=== PATIENT | male | born 1950 | race African-American/Black ===

== ENCOUNTER 2016-09-18 12:49 | Inpatient (IN) ==
[2016-09-18] MEDS ORDERED: DILTIAZEM 50 MG/10 ML VIAL IV STA ×2 (13:09→14:47)
[2016-09-18] MEDS ORDERED: SODIUM CHLORIDE 0.9% 1,000 ML IV STA ×2 (13:09→14:47)
[2016-09-18] MEDS ORDERED: DILTIAZEM 50 MG/10 ML VIAL IV ONE (13:26)
[2016-09-18 13:27] LABS: Basophils % 0.2 % (0.0-0.8); Hematocrit 41.8 VOL% (42.0-52.0); Hemoglobin 14.9 GM/DL (14.0-18.0); Immature Granulocytes % 0.4 %; Immature Granulocytes Absolute 0.04 #; Lymphocytes % 18.4 % (21.2-54.2); Mean Corpuscular HGB Conc 35.6 GM/DL (32-36); Mean Corpuscular Hemoglobin 33 PG (27-34); Mean Corpuscular Volume 93.7 FL (87-102); Mean Platelet Volume 10.9 FL (9.6-12.0); Monocytes # 0.9 10*3/uL (0.11-0.8); Monocytes % 8.6 % (1.7-12.7); Neutrophils # 7.9 10*3/uL (1.4-7.4); Neutrophils % 72.4 % (38.7-73.9); Platelet Count 142 T/CUMM (130-400); Red Blood Count 4.46 MC/CUMM (3.8-5.5); Red Cell Distribution Width 11.9 % (9.3-17.3); White Blood Count 10.8 T/CUMM (4-12)
[2016-09-18 13:46] LABS: Apearance,Urine Slightly Hazy (Clear); Bacteria,Urine Occasional /HPF (Few); Bilirubin,Urine Negative (Negative); Blood, Urine Large mg/dL (Negative); Glucose,Urine (UA) Negative (Negative); Granular Casts,Urine 5 /LPF (0-1); Hyaline Casts,Urine 13 /LPF (0-3); Ketones,Urine 5 mg/dL (Negative); Mucus,Urine Many /LPF (Occasional); Nitrite,Urine Negative (Negative); Protein,Urine 100 MG/DL; RBC,Urine 1 /HPF (0-4); Squamous Epithelial Cell,Urine Occasional /HPF (0-10); Urine Color Amber (Yellow); Urine Specific Gravity 1.025 (1.001-1.035); WBC,Urine 2 /HPF (0-6)
[2016-09-18 13:52] LABS: Barbiturates Screen,Urine Negative (Negative); Benzodiazepines Screen,Urine Negative (Negative); Cannabinoid Screen,Urine Positive (Negative); Opiate Screen,Urine Negative (Negative); Phencyclidine Screen,Urine Negative (Negative)
[2016-09-18 14:05] LABS: Calcium 8.8 MG/DL (8.5-10.1); Magnesium 1.9 MG/DL (1.8-2.4); Osmolality,Calculated 275.1 MOS/KG (273-304); Potassium 3.6 MMOL/L (3.5-5.1); Thyroid Stimulating Hormone 1.35 uIU/ml (0.358-3.74); Troponin I Only 0.123 NG/ML (0.00-0.045)
[2016-09-18] MEDS ORDERED: ENOXAPARIN 80 MG/0.8 ML SYRINGE SUBCUT STA (15:42)
[2016-09-18] MEDS ORDERED: ASPIRIN CHEW 81 MG TABLET PO STA (15:42)
--- NOTE | 2016-09-18 15:42 | XRay Report ---
History: Shortness of breath Date: 09/18/2016 Study: Chest x-ray PA and lateral Comparison exam: July 31, 2015 There is focal patchy infiltrate in the left upper lung in the left suprahilar area with slight volume loss in the left upper lung. The lungs are otherwise generally clear. There is no layering pleural effusion. The cardiac silhouette is not enlarged. There is no mediastinal mass. The pulmonary vasculature is not engorged. Osseous structures are unremarkable. Impression: Left upper lung pneumonia. Radiographic follow-up to resolution is recommended to help exclude any other underlying pathology PROCEDURE INTERPRETED AT [facility] DEPARTMENT OF RADIOLOGY Final Report Signed by: Dr. Sherry Haney
[2016-09-18] MEDS ORDERED: cefTRIAXone 1,000 MG in SODIUM CHLORIDE 0.9% 100 ML IV STA (15:43)
[2016-09-18] MEDS ORDERED: cefTRIAXone 1,000 MG VIAL ONE (15:46)
[2016-09-18] MEDS ORDERED: ENOXAPARIN 80 MG/0.8 ML SYRINGE SUBCUT ONE (15:46)
[2016-09-18] MEDS ORDERED: ASPIRIN 325 MG TABLET ONE (15:47)
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
[2016-09-18] MEDS ORDERED: SODIUM CHLORIDE 0.9% 1,000 ML IV ONE (15:59)
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
[2016-09-18] MEDS ORDERED: ACETAMINOPHEN 325 MG TABLET PO PRN (17:40)
[2016-09-18] MEDS ORDERED: ZALEPLON 5 MG CAPSULE PO PRN (17:40)
[2016-09-18] MEDS ORDERED: ONDANSETRON 4 MG/2 ML VIAL IV PRN (17:40)
[2016-09-18] MEDS: GABAPENTIN 300 MG CAPSULE PO SCH (17:56)
[2016-09-18] MEDS: DILTIAZEM INJ 100 MG in SODIUM CHLORIDE 0.9% 100 ML IV SCH (18:15)
[2016-09-18] MEDS: SODIUM CHLORIDE 0.9% 1,000 ML IV SCH (18:19)
[2016-09-18] MEDS: PIPERACILLIN/TAZOBACTAM 3,375 MG in SODIUM CHLORIDE 0.9% 100 ML IV SCH (18:19)
[2016-09-18 19:12] LABS: INR 1.2; PT Patient Result 12.3 SECS; Partial Thromboplastin Time 31.6 SECS (0-40)
[2016-09-18 19:38] LABS: Magnesium 1.9 MG/DL (1.8-2.4); Thyroid Stimulating Hormone 1.55 uIU/ml (0.358-3.74)
[2016-09-18] MEDS: METOPROLOL TARTRATE 50 MG TABLET PO SCH (21:32)
[2016-09-19 00:20] LABS: Apearance,Urine CLEAR (Clear); Bilirubin,Urine Negative (Negative); Blood, Urine Large mg/dL (Negative); Glucose,Urine (UA) Negative (Negative); Ketones,Urine Negative (Negative); Mucus,Urine Occasional /LPF (Occasional); Nitrite,Urine Negative (Negative); Protein,Urine 100 MG/DL; RBC,Urine 3 /HPF (0-4); Squamous Epithelial Cell,Urine Occasional /HPF (0-10); Urine Color Amber (Yellow); Urine Specific Gravity 1.027 (1.001-1.035); WBC,Urine 2 /HPF (0-6)
[2016-09-19] MEDS: PIPERACILLIN/TAZOBACTAM 3,375 MG in SODIUM CHLORIDE 0.9% 100 ML IV SCH ×3 (04:03→18:20)
[2016-09-19] MEDS: SODIUM CHLORIDE 0.9% 1,000 ML IV SCH ×4 (04:04→22:51)
[2016-09-19] MEDS: DILTIAZEM INJ 100 MG in SODIUM CHLORIDE 0.9% 100 ML IV SCH ×2 (04:09→06:56)
[2016-09-19] MEDS: APIXABAN 5 MG TABLET PO SCH ×3 (04:13→22:50)
[2016-09-19 05:02] LABS: Basophils % 0.2 % (0.0-0.8); Hematocrit 35.7 VOL% (42.0-52.0); Hemoglobin 12.4 GM/DL (14.0-18.0); Immature Granulocytes % 0.3 %; Immature Granulocytes Absolute 0.03 #; Lymphocytes # 1.7 10*3/uL (1.4-4.0); Mean Corpuscular HGB Conc 34.7 GM/DL (32-36); Mean Corpuscular Hemoglobin 33 PG (27-34); Mean Corpuscular Volume 94.7 FL (87-102); Mean Platelet Volume 12.2 FL (9.6-12.0); Monocytes # 1.1 10*3/uL (0.11-0.8); Monocytes % 11.8 % (1.7-12.7); Neutrophils # 6.5 10*3/uL (1.4-7.4); Neutrophils % 69.7 % (38.7-73.9); Platelet Count 135 T/CUMM (130-400); Red Blood Count 3.77 MC/CUMM (3.8-5.5); White Blood Count 9.4 T/CUMM (4-12)
[2016-09-19 05:37] LABS: Calcium 7.4 MG/DL (8.5-10.1); Osmolality,Calculated 280.4 MOS/KG (273-304); Potassium 3.7 MMOL/L (3.5-5.1); Risk Ratio 4.08; VLDL CHOLESTEROL 17.8 MG/DL
--- NOTE | 2016-09-19 06:02 | EKG Report ---
Stationary ECG Study 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
--- NOTE | 2016-09-19 06:37 | EKG Report ---
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
[2016-09-19] MEDS ORDERED: ALBUTEROL/IPRATROPIUM 3 ML NEB RESP TX PRN (07:11)
--- NOTE | 2016-09-19 07:48 | EKG Report ---
Stationary ECG Study [facility] Test Date: 09/18/2016 11:23:13 PM Pat Name: Cheikh Story Department: Room: 291 Gender: M Slackman: Suresh : 1950 Requested by: Meagan Lao Order Number: [id number] Reading MD: TYRELL ARRIAGA Intervals [place] Rate: 92 P: 266 SD: 177 QRS: 83 QRSD: 81 T: 265 QT: 368 QTc: 418 Interpretive Statements Typical atrial flutter ANTEROSEPTAL INFARCT, PROBABLY OLD Electronically Signed On 09-19-16 07:49:24 CDT by TYRELL ARRIAGA [email or web address]
--- NOTE | 2016-09-19 07:49 | EKG Report ---
Stationary ECG Study [facility] Test Date: 09/19/2016 2:09:27 AM Pat Name: MAREK GALDAMEZ Department: Room: 291 Gender: M Brim Stretcher: Suresh : 1950 Requested by: Meagan Lao Order Number: [id number] Reading MD: TYRELL ARRIAGA Intervals [place] Rate: 91 P: -88 NE: 181 QRS: 85 QRSD: 80 T: 268 QT: 337 QTc: 385 Interpretive Statements Typical atrial flutter SEPTAL INFARCT, PROBABLY OLD Electronically Signed On 09-19-16 07:50:03 CDT by TYRELL ARRIAGA [email or web address]
[2016-09-19] MEDS: GABAPENTIN 300 MG CAPSULE PO SCH (09:06)
[2016-09-19] MEDS: METOPROLOL TARTRATE 50 MG TABLET PO SCH ×2 (09:06→22:50)
[2016-09-19] MEDS: FOLIC ACID 0.4 MG TABLET PO SCH (09:06)
[2016-09-19] MEDS: ASPIRIN EC 81 MG TABLET PO SCH (09:06)
[2016-09-19] MEDS: PANTOPRAZOLE 40 MG TABLET PO SCH (09:06)
[2016-09-19] MEDS: THIAMINE 100 MG TABLET PO SCH (09:06)
--- NOTE | 2016-09-19 13:13 | Hospitalist Progress Note ---
Assessment and Plan (1) Community acquired pneumonia Status: Acute Assessment and plan: 1)CAP- on Zosyn, feeling better today. On exam he has wheezing. He denies history of COPD though he has smoked for 40 years. Begin steroids. Continue O2 prn and IV antibiotics and nebs. 2)afib with RVR- new rhythm to him. Slowed with Dilt. On Eliquis. convert to oral diltiazem this afternoon. Current Visit: Yes (2) Dehydration Status: Acute Current Visit: Yes (3) Cannabis abuse Status: Acute Current Visit: Yes (4) New onset a-fib Status: Acute Current Visit: Yes Hospitalist: Subjective Interval history: Mr Story is feeling better this morning. His heart rate has come down to the 80 -90s and he is breathing comfortably. No chest pain. No nausea. Eating well. Exam - Constitutional Vitals: Period Temp Pulse Resp BP Sys/Mendoza Pulse Ox Last 24 Hr 98.9 F-100.9 F 83-172 17-24 107-145/65-119 90-100 General appearance: no acute distress, over weight - Head Head exam: Present: normocephalic, atraumatic - Eye Eye exam: Present: EOMI. Absent: scleral icterus - Respiratory Respiratory exam: Present: clear to auscultation bilaterally - Cardiovascular Cardiovascular exam: Present: irregular rhythm - GI/Abdominal GI/Abdominal exam: Present: normal bowel sounds, soft. Absent: tenderness - Extremities Exam Extremities exam: Absent: edema - Neurological Exam Neurological exam: Present: alert, oriented X3 - Psychiatric Psychiatric exam: Present: normal affect - Skin Skin exam: Present: warm, dry Results - Labs CBC & BMP: 09/19/16 04:29 09/19/16 04:29 Lab Results: I have reviewed the past 24 hour labs
[2016-09-19] MEDS: predniSONE 20 MG TABLET PO SCH (14:06)
[2016-09-19] MEDS: ALBUTEROL/IPRATROPIUM 3 ML NEB RESP TX SCH ×3 (15:16→23:20)
--- NOTE | 2016-09-19 17:45 | ECHO Report ---
Cheikh Story Exam Date: 09/19/2016 08:10 Referring Physician: Technologist: shanelle Soriano ARDMS, RVT Age: 65 Ht (in): 72 Wt (lb): 200 Gender: M Exam Location: [facility] Echo Indications: Shortness of breath, Atrial fibrillation, Elevated troponin, Pneumonia BP: 113 / 65 HR: 94 Rhythm: Sinus Technical Quality: Fair IMPRESSIONS 1. Left ventricle is normal size with ejection fraction 55%. Normal wall thickness. 2. Right ventricle and atrium are mildly dilated. 3. Left atrium normal size. 4. Trace to mild mitral and tricuspid valve regurgitation. 5. Aortic valve is unremarkable within normal limits. MEASUREMENTS (Male / Female) Normal Values 2D ECHO LV Diastolic Diameter PLAX 4.5 cm 4.2 - 5.9 / 3.9 - 5.3 cm LV Systolic Diameter PLAX 3.6 cm LV Fractional Shortening PLAX 19.5 % IVS Diastolic Thickness 0.7 cm 0.6 - 1.0 / 0.6 - 0.9 cm LVPW Diastolic Thickness 1.0 cm 0.6 - 1.0 / 0.6 - 0.9 cm RV Internal Dim ED PLAX 4.5 cm Aortic Root Diameter 3.5 cm LA Systolic Diameter LX 3.0 cm 3.0 - 4.0 / 2.7 - 3.8 cm DOPPLER TR Peak Velocity 289.0 cm/s TR Peak Gradient 33.4 mmHg FINDINGS Left Ventricle Normal left ventricular cavity size. Normal left ventricular wall thickness. Left ventricular ejection fraction is estimated at 55 %. Right Ventricle Mildly increased right ventricular size. Right Atrium The right atrium is mildly enlarged. Left Atrium The left atrium is normal in size. Mitral Valve Mitral valve appears to be anatomically normal with trace to mild mitral regurgitation. Aortic Valve Morphologically normal aortic valve without significant sclerosis or stenosis. There is no aortic regurgitation. Tricuspid Valve Morphologically normal tricuspid valve. Trace to mild tricuspid valve regurgitation. Tricuspid regurgitation velocities suggest a PAP of 43 mmHg. Pulmonic Valve Pulmonic valve not well visualized. No pulmonary valve regurgitation. Pericardium Normal pericardium without effusion. Aorta Normal ascending aorta dimension. Joshua Barillas MD (Electronically Signed) Final Date: 19 September 2016 17:44
[2016-09-19] MEDS: DILTIAZEM 60 MG TABLET PO SCH ×2 (18:20→22:49)
[2016-09-20] MEDS: PIPERACILLIN/TAZOBACTAM 3,375 MG in SODIUM CHLORIDE 0.9% 100 ML IV SCH ×3 (02:38→17:08)
[2016-09-20] MEDS: SODIUM CHLORIDE 0.9% 1,000 ML IV SCH ×2 (02:38→22:03)
[2016-09-20] MEDS: ALBUTEROL/IPRATROPIUM 3 ML NEB RESP TX SCH ×5 (03:04→20:29)
[2016-09-20 04:58] LABS: Basophils % 0.1 % (0.0-0.8); Hematocrit 35.4 VOL% (42.0-52.0); Hemoglobin 12.4 GM/DL (14.0-18.0); Immature Granulocytes % 0.8 %; Immature Granulocytes Absolute 0.08 #; Lymphocytes # 1.7 10*3/uL (1.4-4.0); Lymphocytes % 16.4 % (21.2-54.2); Mean Corpuscular Hemoglobin 33 PG (27-34); Mean Corpuscular Volume 93.9 FL (87-102); Mean Platelet Volume 12.1 FL (9.6-12.0); Monocytes # 1.1 10*3/uL (0.11-0.8); Monocytes % 10.5 % (1.7-12.7); Neutrophils # 7.3 10*3/uL (1.4-7.4); Neutrophils % 72.2 % (38.7-73.9); Platelet Count 149 T/CUMM (130-400); Red Blood Count 3.77 MC/CUMM (3.8-5.5); Red Cell Distribution Width 12.2 % (9.3-17.3); White Blood Count 10.1 T/CUMM (4-12)
[2016-09-20 05:17] LABS: Calcium 7.8 MG/DL (8.5-10.1); Osmolality,Calculated 286.3 MOS/KG (273-304)
[2016-09-20] MEDS: ASPIRIN EC 81 MG TABLET PO SCH (08:59)
[2016-09-20] MEDS: DILTIAZEM 60 MG TABLET PO SCH ×4 (09:00→21:46)
[2016-09-20] MEDS: predniSONE 20 MG TABLET PO SCH (09:01)
[2016-09-20] MEDS: METOPROLOL TARTRATE 50 MG TABLET PO SCH ×2 (09:01→21:46)
[2016-09-20] MEDS: FOLIC ACID 0.4 MG TABLET PO SCH (09:01)
[2016-09-20] MEDS: APIXABAN 5 MG TABLET PO SCH ×2 (09:01→21:46)
[2016-09-20] MEDS: GABAPENTIN 300 MG CAPSULE PO SCH (09:01)
[2016-09-20] MEDS: PANTOPRAZOLE 40 MG TABLET PO SCH (09:02)
[2016-09-20] MEDS: THIAMINE 100 MG TABLET PO SCH (09:02)
--- NOTE | 2016-09-20 13:26 | Hospitalist Progress Note ---
Assessment and Plan (1) Community acquired pneumonia Status: Acute Assessment and plan: 1)CAP- on Zosyn, feeling better today. On exam he continues to wheeze. He denies history of COPD though he has smoked for 40 years. On oral steroids Day 2. Continue O2 prn and IV antibiotics and nebs. almost 24 hours afebrile so far. Recheck CXR in am. 2)afib with RVR- new rhythm to him. Now converted to NSR. On Eliquis. continue oral dilt. Current Visit: Yes (2) Dehydration Status: Acute Current Visit: Yes (3) Cannabis abuse Status: Acute Current Visit: Yes (4) New onset a-fib Status: Acute Current Visit: Yes Hospitalist: Subjective Interval history: Mr Story is feeling better and less short of breath today. He converted back to NSR last night. He has some cough, appetite ok, rested ok. Exam - Constitutional Vitals: Period Temp Pulse Resp BP Sys/Mendoza Pulse Ox Last 24 Hr 96.6 F-965 F 67-101 16-22 104-137/62-88 95-99 General appearance: normal weight, no acute distress - Head Head exam: Present: normocephalic, atraumatic - Eye Eye exam: Present: EOMI. Absent: scleral icterus - Respiratory Respiratory exam: Present: wheezes (improved air movement today, but exp wheezes bilaterally) - Cardiovascular Cardiovascular exam: Present: regular rate and rhythm - GI/Abdominal GI/Abdominal exam: Present: normal bowel sounds, soft. Absent: tenderness - Extremities Exam Extremities exam: Absent: edema - Neurological Exam Neurological exam: Present: alert, oriented X3 - Psychiatric Psychiatric exam: Present: normal affect, normal mood - Skin Skin exam: Present: warm, dry Results - Labs CBC & BMP: 09/20/16 04:12 09/20/16 04:12 Lab Results: I have reviewed the past 24 hour labs
[2016-09-21] MEDS: ALBUTEROL/IPRATROPIUM 3 ML NEB RESP TX SCH ×6 (00:02→20:15)
[2016-09-21] MEDS: PIPERACILLIN/TAZOBACTAM 3,375 MG in SODIUM CHLORIDE 0.9% 100 ML IV SCH ×2 (03:12→09:07)
[2016-09-21 05:12] LABS: Basophils % 0.2 % (0.0-0.8); Eosinophils % 0.3 % (0.00-10.9); Hemoglobin 11.7 GM/DL (14.0-18.0); Immature Granulocytes % 0.7 %; Immature Granulocytes Absolute 0.08 #; Lymphocytes # 2.3 10*3/uL (1.4-4.0); Lymphocytes % 20.4 % (21.2-54.2); Mean Corpuscular HGB Conc 34.4 GM/DL (32-36); Mean Corpuscular Hemoglobin 33 PG (27-34); Mean Corpuscular Volume 96.3 FL (87-102); Mean Platelet Volume 12.3 FL (9.6-12.0); Monocytes % 9.2 % (1.7-12.7); Neutrophils # 7.8 10*3/uL (1.4-7.4); Neutrophils % 69.2 % (38.7-73.9); Platelet Count 142 T/CUMM (130-400); Red Blood Count 3.53 MC/CUMM (3.8-5.5); Red Cell Distribution Width 12.7 % (9.3-17.3); White Blood Count 11.2 T/CUMM (4-12)
[2016-09-21 07:42] LABS: Potassium 3.8 MMOL/L (3.5-5.1)
[2016-09-21 07:45] LABS: Calcium 8.1 MG/DL (8.5-10.1); Osmolality,Calculated 281.3 MOS/KG (273-304)
[2016-09-21] MEDS: SODIUM CHLORIDE 0.9% 1,000 ML IV SCH ×5 (07:56→22:57)
--- NOTE | 2016-09-21 08:43 | XRay Report ---
XR chest 1V Indication: Pneumonia Comparison: Chest x-ray dated September 18, 2016 Technique: Single frontal view of the chest. Findings: The cardiomediastinal silhouette is stable in configuration. Mildly progressed left suprahilar consolidation. Small left pleural fluid. Mild right perihilar and left infrahilar opacities. Visualized osseous and surrounding soft tissue structures appear grossly unchanged.. IMPRESSION: As above. PROCEDURE INTERPRETED AT [facility] DEPARTMENT OF RADIOLOGY Final Report Signed by: Dr Prasanna Koenig
[2016-09-21] MEDS: FOLIC ACID 0.4 MG TABLET PO SCH (09:07)
[2016-09-21] MEDS: predniSONE 20 MG TABLET PO SCH (09:07)
[2016-09-21] MEDS: GABAPENTIN 300 MG CAPSULE PO SCH (09:07)
[2016-09-21] MEDS: THIAMINE 100 MG TABLET PO SCH (09:07)
[2016-09-21] MEDS: ASPIRIN EC 81 MG TABLET PO SCH (09:07)
[2016-09-21] MEDS: METOPROLOL TARTRATE 50 MG TABLET PO SCH ×2 (09:07→21:37)
[2016-09-21] MEDS: DILTIAZEM 60 MG TABLET PO SCH ×4 (09:07→21:35)
[2016-09-21] MEDS: PANTOPRAZOLE 40 MG TABLET PO SCH (09:07)
[2016-09-21] MEDS: APIXABAN 5 MG TABLET PO SCH ×2 (09:07→21:37)
[2016-09-21 09:18] LABS: Bilirubin,Direct 0.4 MG/DL (0.0-0.20); Bilirubin,Indirect 0.6 MG/DL (0.0-1.0)
[2016-09-21 09:19] LABS: Albumin 2.4 G/DL (3.4-5.0); Total Protein 5.8 G/DL (6.4-8.3)
[2016-09-21 12:18] LABS: Apearance,Urine CLEAR (Clear); Bilirubin,Urine Negative (Negative); Blood, Urine Large mg/dL (Negative); Glucose,Urine (UA) Negative (Negative); Ketones,Urine Negative (Negative); Nitrite,Urine Negative (Negative); Protein,Urine 100 MG/DL; RBC,Urine 2 /HPF (0-4); Squamous Epithelial Cell,Urine Occasional /HPF (0-10); Urine Color Amber (Yellow); Urine Specific Gravity 1.018 (1.001-1.035); WBC,Urine 2 /HPF (0-6)
--- NOTE | 2016-09-21 14:04 | Hospitalist Progress Note ---
Assessment and Plan - Time spent with patient Time spent with patient: Less than 30 minutes (1) Community acquired pneumonia Status: Acute Assessment and plan: 09/21/16 WBC 11.2; TEMP 98.0; Will continue Zosyn, continue steroids, NC o2 and nebs. Will repeat a.m. labs. Current Visit: Yes (2) Elevated CPK Status: Acute Assessment and plan: 09/21/16 - Increased Total Creatinine Kinase 81664 up from 3269. AST 477; ALT 102. CXR 09/21/16 The cardiomediastinal silhouette is stable in configuration. Mildly progressed left suprahilar consolidation. Small left pleural fluid. Mild right perihilar and left infrahilar opacities. Visualized osseous and surrounding soft tissue structures appear grossly unchanged.. Will repeat labs in a.m. Current Visit: Yes Hospitalist: Subjective Interval history: 09/21/16 Patient seen and chart reviewed. Mr Story verbalized having a good night and feeling much better today. He reports good appetite. He reports breathing has improved. Denies any fever, chills, or chest pain. Exam - Constitutional Vitals: Period Temp Pulse Resp BP Sys/Mendoza Pulse Ox Last 24 Hr 96.4 F-98 F 70-99 16-22 103-125/63-84 90-99 General appearance: normal weight, no acute distress - Head Head exam: Present: normal inspection - Eye Eye exam: Present: EOMI Pupils: Present: ALTHEA - Neck Neck exam: Present: normal inspection - Respiratory Respiratory exam: Present: wheezes (expiratory wheeze) - Cardiovascular Cardiovascular exam: Present: regular rate and rhythm - GI/Abdominal GI/Abdominal exam: Present: normal bowel sounds, soft. Absent: tenderness, rebound - Extremities Exam Extremities exam: Present: full ROM. Absent: edema - Neurological Exam Neurological exam: Present: alert, oriented X3 - Psychiatric Psychiatric exam: Present: normal affect, normal mood. Absent: agitated, anxious - Skin Skin exam: Present: normal color, warm, dry Results - Labs CBC & BMP: 09/21/16 04:28 09/21/16 06:04 Lab Results: I have reviewed the past 24 hour labs - Diagnostic Findings Procedure: Chest x-ray: report reviewed by me (Midly progressed left suprahilar consolidation; small left pleural fluid; mild right perihilar and left infrahilar opacites; visualized osseous and surrounding soft tissue structures appear grossly unchanged)
[2016-09-21] MEDS: AZITHROMYCIN INJ 500 MG in SODIUM CHLORIDE 0.9% 250 ML IV SCH (14:43)
[2016-09-21 15:59] LABS: Hepatitis A Ab IgM Quant 0.21 Index; Hepatitis A Ab IgM Result Negative (Negative); Hepatitis B Core IgM Quant 0.24 Index; Hepatitis B Core IgM Result Negative (Negative); Hepatitis B Surface Ag Quant 0.29 Index; Hepatitis B Surface Ag Result Negative (Negative); Hepatitis C Virus Ab Result Negative (Negative)
[2016-09-21] MEDS: cefTRIAXone 1,000 MG in SODIUM CHLORIDE 0.9% 100 ML IV SCH (16:15)
--- NOTE | 2016-09-21 16:16 | Ultrasound Report ---
US renal Bilateral Indication: Bilirubinemia. Comparison: None. Technique: Multiple longitudinal and transverse real-time sonographic images of the kidneys are obtained. Findings: The right kidney measures 11.3 cm, and the left kidney measures 10.4 cm. Hyperechoic renal parenchyma suggestive of medical renal disease. No evidence of hydronephrosis. IMPRESSION: Medical renal disease without evidence of hydronephrosis. PROCEDURE INTERPRETED AT [facility] DEPARTMENT OF RADIOLOGY Final Report Signed by: Dr Prasanna Koenig
--- NOTE | 2016-09-21 18:59 | Nephrology Consult Note ---
History of Present Illness Chief complaint: Elevated CPK History of present illness: Mr. Story is a 65 year old male admitted on 09/18/2016 with pneumonia and atrial flutter. He reported shortness of breath and nausea at the time of admission. He reports getting really hot 2 days prior to admission. He reported increased thirst. He was noted to have an infiltrate on chest x-ray. He was treated with empiric antibiotics. His cough and shortness of breath have improved with treatment. Creatinine was mildly elevated at 1.6 and CPK elevated at 2897 on admission. Lactic acid was mildly elevated at 2.2. Over the next 3 days his renal function improved with creatinine down to 0.8 today. Total CPK racquel to 5353 on the date of admission but improved to 30-69 the following day. However repeat CPK today was 61,000. Urine is noted to be quite dark. He reports mild soreness of his upper thighs but no significant myalgias elsewhere. He currently denies shortness of breath. Home Medications Medication Instructions Recorded Confirmed Type Aspirin EC Tab 81 mg PO DAILY 09/18/16 09/18/16 History Gabapentin 300 mg PO DAILY 09/18/16 09/18/16 History Allergies Allergy/AdvReac Type Severity Reaction Status Date / Time No Known Allergies Allergy Verified 07/31/15 14:02 Medical,Surgical,& Family Hx - Medical History Neurology: History of: Peripheral Neuropathy Gastrointestinal: History of: GERD Musculoskeletal: History of: Musculoskeletal Problems (frostbite on the feet) - Family History Family History: Denies;: Family Cancer, Family Diabetes, Family Heart Disease, Family Stroke - Social History Smoking Status: Current every day smoker Frequency of Alcohol Use: Occasionally Type of Drug Use: None Review of Systems 12 point system: reviewed and no additional remarkable complaints except as stated Exam - Vital Signs Vital signs: Period Temp Pulse Resp BP Sys/Mendoza Pulse Ox Last 24 Hr 96.7 F-98.0 F 70-90 16-20 103-125/63-84 90-99 Exam: Gen.: Alert and oriented x3. ENT: Pupils equal round reactive to light. EOMs intact. Mucous membranes moist. Neck: Supple. No JVD or bruit. Cardiovascular: Regular rate and rhythm. No murmur rub or gallop Lungs: Clear Abdomen: Soft. Nontender. Positive bowel sounds. No organomegaly. No flank or back tenderness. Extremities: No edema. Minimal tenderness to palpation medial thighs Results - Labs CBC & BMP: 09/21/16 04:28 09/21/16 06:04 Assessment and Plan (1) Community acquired pneumonia Status: Acute Current Visit: Yes (2) Elevated CPK Status: Acute Assessment and plan: 65-year-old man with: * Pneumonia. This is clinically improved with empiric antibiotics. Blood cultures negative * Rhabdomyolysis. He does not have typical myalgias for severe muscle injury. However urinalysis on admission shows large amount of blood on dipstick but only 3 RBCs on microscopic exam. Today's urinalysis is unchanged. This is consistent with myoglobin in the urine. Creatinine has improved since admission. Renal ultrasound shows mildly increased echogenicity. IV fluid rate will be increased. Bicarbonate will be added to alkalinize urine to increase myoglobin clearance. This may be caused by his original infection. Elevated liver enzymes are also a new finding. * Atrial fibrillation/flutter. Resolved Current Visit: Yes (3) New onset a-fib Status: Acute Current Visit: Yes
[2016-09-22] MEDS: ALBUTEROL/IPRATROPIUM 3 ML NEB RESP TX SCH ×6 (00:19→20:54)
[2016-09-22] MEDS: SODIUM CHLORIDE 0.9% 1,000 ML IV SCH ×3 (05:41→12:08)
[2016-09-22 05:44] LABS: Basophils % 0.1 % (0.0-0.8); Eosinophils % 0.1 % (0.00-10.9); Hemoglobin 10.5 GM/DL (14.0-18.0); Immature Granulocytes % 1.4 %; Immature Granulocytes Absolute 0.19 #; Lymphocytes # 2.5 10*3/uL (1.4-4.0); Lymphocytes % 18.8 % (21.2-54.2); Mean Corpuscular Hemoglobin 33 PG (27-34); Mean Platelet Volume 11.9 FL (9.6-12.0); Monocytes # 1.1 10*3/uL (0.11-0.8); Monocytes % 8.4 % (1.7-12.7); NRBC # 0.02 10*3/uL; Neutrophils # 9.5 10*3/uL (1.4-7.4); Neutrophils % 71.2 % (38.7-73.9); Platelet Count 227 T/CUMM (130-400); Red Blood Count 3.19 MC/CUMM (3.8-5.5); Red Cell Distribution Width 12.2 % (9.3-17.3); White Blood Count 13.4 T/CUMM (4-12)
[2016-09-22 06:18] LABS: Calcium 7.8 MG/DL (8.5-10.1); Potassium 4.4 MMOL/L (3.5-5.1)
[2016-09-22 07:15] LABS: Albumin 2.2 G/DL (3.4-5.0); Bilirubin,Total 1.2 MG/DL (0.2-1.0); Calcium 7.8 MG/DL (8.5-10.1); Calcium 7.9 MG/DL (8.5-10.1); Magnesium 2.7 MG/DL (1.8-2.4); Potassium 4.1 MMOL/L (3.5-5.1); Potassium 4.2 MMOL/L (3.5-5.1); Total Protein 5.4 G/DL (6.4-8.3)
[2016-09-22 07:51] LABS: Troponin I Only 0.081 NG/ML (0.00-0.045)
--- NOTE | 2016-09-22 08:04 | XRay Report ---
Exam: XR chest 1V Date: 09/22/2016 4:00 AM Comparison: 09/21/2016 Indication: Pneumonia Technique:[Portable AP sitting chest] Findings: The heart is borderline in size. Progressive parenchymal findings in the right lower lung zone and throughout the left lung. Small pleural effusions. Minimally increased hilar density with degenerative changes. Impression: Progressive bilateral pneumonia with small pleural effusions. Follow-up chest x-ray recommended. PROCEDURE INTERPRETED AT [facility] DEPARTMENT OF RADIOLOGY Final Report Signed by: Dr. Leana Martinez
[2016-09-22] MEDS: ASPIRIN EC 81 MG TABLET PO SCH (08:08)
[2016-09-22] MEDS: THIAMINE 100 MG TABLET PO SCH (08:08)
[2016-09-22] MEDS: GABAPENTIN 300 MG CAPSULE PO SCH (08:08)
[2016-09-22] MEDS: METOPROLOL TARTRATE 50 MG TABLET PO SCH ×2 (08:08→20:51)
[2016-09-22] MEDS: APIXABAN 5 MG TABLET PO SCH ×2 (08:08→20:51)
[2016-09-22] MEDS: FOLIC ACID 0.4 MG TABLET PO SCH (08:08)
[2016-09-22] MEDS: DILTIAZEM 60 MG TABLET PO SCH ×2 (08:08→12:11)
[2016-09-22] MEDS: predniSONE 20 MG TABLET PO SCH (08:08)
[2016-09-22] MEDS: PANTOPRAZOLE 40 MG TABLET PO SCH (08:08)
--- NOTE | 2016-09-22 10:52 | Pulmonology Consult Note ---
History of Present Illness Chief complaint: Pneumonia. Asthma. Elevated CPK History of present illness: Mr. Story is a 65 year old black male whom I been asked to see in pulmonary consultation concerning his shortness of breath, wheezing, bilateral pneumonia, and elevated CPK. This patient was admitted on 09/18/2016. He had apparently gotten 6 sick the day before. 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 He said he did not drink a lot of fluid and he thought it was a bit hot that day. On the way home or after he got home he developed fever and chills which he describes as being overheated. He developed a cough and eventually this produced brown discolored sputum. Patient says he has chronic wheezing. He says he smokes a pack of cigarettes per day. He also uses marijuana. He says he does not use any other drugs. He denies cardiac angina. He has had no hemoptysis. He denies solid dysphasia he denies gastroesophageal reflux. Patient says he is sore in his thighs but otherwise he denies any muscle pain. Lab. At admission the patient's CPK was elevated at 5353. The next day it dropped to 3269. 2 days later it was elevated at 76,167. Today the CPK has dropped to 68,266. His admit white count was 10,800 with 72 segs. His H&H is dropped while he has been here. His creatinine is decreased from 1.60 at admission to 0.80 with a BUN of 13 and normal electrolytes. At admission the patient's lactic acid was elevated 2.2 his natruretic peptide was 157. Troponins were 0.255. Presently his phosphorus is slightly low. Calcium was 8.8 at admission but has been low since then and his phosphorus is low. Alkaline Lilliam is normal. Total bilirubin is normal. AST is elevated at 637 and ALT is elevated at 124. Total protein and albumin are low at 5.4 and 2.2 respectively. Globulin is normal at 3.2. Hepatitis profile is negative. Drug screen was positive for cannabinoids. Chest x-ray. 09/22/2016. Alveolar infiltrate in the left upper lung and in the right lower lung. There is a possible small infiltrate in the medial basilar segment of the left lower lung. Lung lama are slightly hyperinflated. Past history. Gastroesophageal reflux disease. History of frostbite of the feet. Peripheral neuropathy. Social history. Smokes a pack and a half of cigarettes per day. Occasionally uses alcohol. Uses marijuana. . 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 Family history. Noncontributory. Physical exam. Vital signs. See below. Afebrile. General. Short of breath but no significant distress Psychiatric oriented 3 Face. Symmetrical. No edema of the lips or tongue. Neck. Symmetrical. No meningismus. Lymphatics. No submandibular cervical supraclavicular or epitrochlear adenopathy. Neurologic. Cranial nerves are intact. Patient moves all fours. Sensory exam was not done and gait was not tested. Arterial. Carotid upstroke is normal. Upper extremity pulses are palpable. Lower extremity pulses are nonpalpable. No evidence of lower extremity ischemia. Venous exam. Neck upper and lower extremities are normal Chest. Symmetrical. Hyperinflated. Coarse large airway wheezes. Prolonged incomplete expiration. I heard no peripheral wheezes but the patient may not be able to move enough air to produce peripheral wheezes. No significant chest wall tenderness. Heart. No gallop Abdomen. Nontender. Positive bowel sounds. and rectal deferred Musculoskeletal. No significant muscular tenderness. No significant edema. Extremities. No clubbing. Nothing to suggest deep venous thrombophlebitis The remainder the physical exam is negative. Impression. 1. Acute left upper lung and right lower lung pneumonia. This is almost certainly bacterial and the onset is strongly suggestive of pneumococcal pneumonia. 2. Elevated CPKs present at admission and markedly worse since admission. Suspect a skeletal muscle injury and most likely this is going to die turner to be secondary to bacterial sepsis. Will check for other causes. No associated renal failure 3. COPD with acute exacerbation including bronchospasm, retention of secretions and shortness of breath #4 tobacco abuse 5. History of gastroesophageal reflux disease Plan. 1. Sputum for Gram stain culture and sensitivity 2. Cold agglutinin. 3. Legionella titer 4. Continue inhalation therapy. Add Pulmozyme twice a day 5. Mucinex 600 twice daily 6. IV Aminophyllin. #7 daily theophylline levels 8. Singulair 9. Follow-up x-ray 10. As per renal 11. Case has been discussed with Dr. Stewart and we have coordinated our care 12. Urine for Streptococcus antigen. 13. See orders Home Medications Medication Instructions Recorded Confirmed Type Aspirin EC Tab 81 mg PO DAILY 09/18/16 09/18/16 History Gabapentin 300 mg PO DAILY 09/18/16 09/18/16 History Allergies Allergy/AdvReac Type Severity Reaction Status Date / Time No Known Allergies Allergy Verified 07/31/15 14:02 Exam ([facility]) H&P - Constitutional Vitals: Period Temp Pulse Resp BP Sys/Mendoza Pulse Ox Last 24 Hr 96.7 F-98.0 F 52-90 16-20 111-163/70-77 90-99 Medical,Surgical,& Family Hx - Medical History Neurology: History of: Peripheral Neuropathy Gastrointestinal: History of: GERD Musculoskeletal: History of: Musculoskeletal Problems (frostbite on the feet) - Family History Family History: Denies;: Family Cancer, Family Diabetes, Family Heart Disease, Family Stroke - Social History Smoking Status: Current every day smoker Frequency of Alcohol Use: Occasionally Type of Drug Use: None Results - Labs CBC & BMP: 09/22/16 05:29 09/22/16 05:29
[2016-09-22] MEDS ORDERED: AMINOPHYLLINE 250 MG in SODIUM CHLORIDE 0.9% 100 ML IV ONE (11:00)
[2016-09-22] MEDS: DORNASE ALFA 2.5 MG/2.5 ML VIAL RESP TX SCH ×2 (11:52→20:54)
[2016-09-22] MEDS: MONTELUKAST 10 MG TABLET PO SCH (12:06)
--- NOTE | 2016-09-22 13:11 | Hospitalist Progress Note ---
Assessment and Plan (1) Community acquired pneumonia Status: Acute Assessment and plan: 1)CAP with rhabdomyolysis- changed to azithro and ceftriaxone. afebrile, WBC down. now with productive cough. His wheezing has continued to improve. Dr Samson has started aminophylline and singulair. COnitnue prednisone 40mg a day and nebs. He has long smokign history. Cultures, legionella, cold agglutinins, and strep pending. 2)afib with RVR- new rhythm to him. back in afib after converting a few days ago. on eliquis. increase Dilt to 360 mg longacting daily. 3)rhabdo from pneumonia (?mycoplasma)- on IVF, Dr Devlin plans to add bicarb to the fluids. UOP and creatinine good though CPK now 59490- yesterday was [place] high as 01402 so it may have peaked). Current Visit: Yes (2) Dehydration Status: Acute Current Visit: Yes (3) Cannabis abuse Status: Acute Current Visit: Yes (4) New onset a-fib Status: Acute Current Visit: Yes Hospitalist: Subjective Interval history: Mr Story is feeling good today and thinks he could go home though he understands that he must stay until his rhabdo is improved. His CPK was confirmed on recheck. [facility] the [facility] with no detectable viral load, and on repeat here his Hep C AB is negative. He is breathing better each day and has finally started to cough today. He is able to walk around the room. He has some soreness in his thigh adductors. No rash. No dysuria. He has noted his UOP has increased with increasing IVF rate. He has gone back into afib, with a controlled rate in the 90s now. I will change the diltiazem to long acting 360mg a day and continue eliquis. Exam - Constitutional Vitals: Period Temp Pulse Resp BP Sys/Mendoza Pulse Ox Last 24 Hr 96.7 F-98.0 F 52-98 16-24 106-163/70-77 93-99 General appearance: no acute distress, over weight - Head Head exam: Present: normocephalic, atraumatic - Eye Eye exam: Present: EOMI. Absent: scleral icterus - Respiratory Respiratory exam: Present: clear to auscultation bilaterally (few exp wheezes, good air movement. productive cough has started today. i listened shortly after neb treatment) - Cardiovascular Cardiovascular exam: Present: irregular rhythm - GI/Abdominal GI/Abdominal exam: Present: normal bowel sounds, soft. Absent: tenderness - Extremities Exam Extremities exam: Absent: edema - Neurological Exam Neurological exam: Present: alert, oriented X3, CN II-XII intact. Absent: motor sensory deficit - Psychiatric Psychiatric exam: Present: normal affect, normal mood Results - Labs CBC & BMP: 09/22/16 05:29 09/22/16 05:29 Lab Results: I have reviewed the past 24 hour labs
[2016-09-22] MEDS: AZITHROMYCIN INJ 500 MG in SODIUM CHLORIDE 0.9% 250 ML IV SCH (14:20)
[2016-09-22] MEDS: DILTIAZEM CD 180 MG CAPSULE PO SCH (14:24)
--- NOTE | 2016-09-22 14:24 | Nephrology Progress Note ---
Nephrology - PN: Subj Interval history: He denies shortness of breath. No increase in muscle soreness. No GI symptoms Exam (PN)-Nephrology - Vital Signs Vital signs: Period Temp Pulse Resp BP Sys/Mendoza Pulse Ox Last 24 Hr 96.7 F-98.0 F 52-98 16-24 106-163/70-77 93-98 Exam: ENT: Normal Cardiovascular: Regular rate and rhythm. No murmur rub or gallop Lungs: Clear Extremities: No edema - Lab 09/22/16 05:29 09/22/16 05:29 Most recent lab results Calcium 7.9 MG/DL (8.5-10.1) L 09/22/16 05:29 Phosphorus 2.4 MG/DL (2.5-4.9) L 09/22/16 05:29 Magnesium 2.7 MG/DL (1.8-2.4) H 09/22/16 05:29 Assessment and Plan (1) Elevated CPK Status: Acute Assessment and plan: 65-year-old man with: * Pneumonia. This is clinically improved with empiric antibiotics. Blood cultures negative * Rhabdomyolysis. Creatinine remains normal. Bicarbonate added to IV fluid. CPK slightly lower than yesterday * Atrial fibrillation/flutter. Resolved Current Visit: Yes (2) Community acquired pneumonia Status: Acute Current Visit: Yes (3) New onset a-fib Status: Acute Current Visit: Yes
[2016-09-22] MEDS: AMINOPHYLLINE 500 MG in SODIUM CHLORIDE 0.9% 480 ML IV SCH (15:23)
[2016-09-22] MEDS: cefTRIAXone 1,000 MG in SODIUM CHLORIDE 0.9% 100 ML IV SCH (15:58)
[2016-09-22] MEDS: SODIUM CHLORIDE 23.4% CONC INJ 38.5 MEQ, SODIUM BICARB INJ 100 MEQ in STERILE WATER INJ... IV SCH (16:01)
[2016-09-23] MEDS: ALBUTEROL/IPRATROPIUM 3 ML NEB RESP TX SCH ×7 (00:57→23:52)
[2016-09-23] MEDS: SODIUM CHLORIDE 23.4% CONC INJ 38.5 MEQ, SODIUM BICARB INJ 100 MEQ in STERILE WATER INJ... IV SCH ×3 (01:55→17:15)
[2016-09-23 06:03] LABS: Calcium 8.2 MG/DL (8.5-10.1); Magnesium 2.7 MG/DL (1.8-2.4); Potassium 4.2 MMOL/L (3.5-5.1)
[2016-09-23] MEDS: DORNASE ALFA 2.5 MG/2.5 ML VIAL RESP TX SCH ×2 (07:00→19:57)
--- NOTE | 2016-09-23 09:18 | Hospitalist Progress Note ---
Assessment and Plan - Time spent with patient Time spent with patient: Less than 30 minutes (1) Community acquired pneumonia Status: Acute Assessment and plan: 09/23/16 WBC up to 13.4 from 11.2. No noted elevation of temperature for the past 24 hours. Pulmonary is following and greatly appreciate their recommendations with continue of care. Will continue Azithromycin and Rocephin ; breathing treatments; repeat a.m. labs. Will monitor for final blood culture results, and sputum culture. 09/21/16 WBC 11.2; TEMP 98.0; Will continue Zosyn, continue steroids, NC o2 and nebs. Will repeat a.m. labs. Current Visit: Yes (2) Elevated CPK Status: Acute Assessment and plan: 09/23/16 - INcrease Total creatinine kinase: 28624 from 73509. Nephrology is following and appreciate further recommendations with continue of care. Sputum and blood Cultures pending, legionella pending, cold agglutinins and strep pending. 09/21/16 - Increased Total Creatinine Kinase 36270 up from 3269. AST 477; ALT 102. CXR 09/21/16 The cardiomediastinal silhouette is stable in configuration. Mildly progressed left suprahilar consolidation. Small left pleural fluid. Mild right perihilar and left infrahilar opacities. Visualized osseous and surrounding soft tissue structures appear grossly unchanged.. Will repeat labs in a.m. Current Visit: Yes Hospitalist: Subjective Interval history: 09/23/16 - Patient seen and chart reviewed. Mr Story verbalized a good night, good appetite, and resting at night. He denies chest pain, shortness of breath, nausea, vomiting, fever or chills. Exam - Constitutional Vitals: Period Temp Pulse Resp BP Sys/Mnedoza Pulse Ox Last 24 Hr 96.6 F-98 F 69-130 18-24 106-184/70-94 93-100 General appearance: normal weight - Head Head exam: Present: normal inspection - Eye Eye exam: Present: EOMI Pupils: Present: ALTHEA - Neck Neck exam: Present: normal inspection - Respiratory Respiratory exam: Present: wheezes (right sided) - Cardiovascular Cardiovascular exam: Present: regular rate and rhythm - GI/Abdominal GI/Abdominal exam: Present: normal bowel sounds, soft. Absent: tenderness, rebound - Extremities Exam Extremities exam: Present: normal inspection, full ROM. Absent: edema - Neurological Exam Neurological exam: Present: alert, oriented X3 - Psychiatric Psychiatric exam: Present: normal affect, normal mood - Skin Skin exam: Present: normal color, warm, dry Results - Labs CBC & BMP: 09/22/16 05:29 09/23/16 03:16 Lab Results: I have reviewed the past 24 hour labs Labs: decrease in H&H down to 10.5 & 30.0 from 11.7 & 34.0 PLatelet increased to 227 from 142 Electrolytes remain stable; Magnesium 2.7 [place] [address] [place] [address] Theophylline level 4.1 Hepatitis Panel 09/21/16 was negative
[2016-09-23] MEDS: METOPROLOL TARTRATE 50 MG TABLET PO SCH ×2 (09:35→22:14)
[2016-09-23] MEDS: predniSONE 20 MG TABLET PO SCH (09:36)
[2016-09-23] MEDS: FOLIC ACID 0.4 MG TABLET PO SCH (09:36)
[2016-09-23] MEDS: THIAMINE 100 MG TABLET PO SCH (09:36)
[2016-09-23] MEDS: PANTOPRAZOLE 40 MG TABLET PO SCH (09:36)
[2016-09-23] MEDS: DILTIAZEM CD 180 MG CAPSULE PO SCH (09:36)
[2016-09-23] MEDS: GABAPENTIN 300 MG CAPSULE PO SCH (09:37)
[2016-09-23] MEDS: ASPIRIN EC 81 MG TABLET PO SCH (09:38)
[2016-09-23] MEDS: MONTELUKAST 10 MG TABLET PO SCH ×2 (09:38→22:14)
[2016-09-23] MEDS: APIXABAN 5 MG TABLET PO SCH ×2 (09:38→22:15)
--- NOTE | 2016-09-23 10:43 | Pulmonology Progress Note ---
Pulmonary - PN: Subj Interval history: This is a 65-year-old black male whom I saw in pulmonary consultation on 2016. He had been admitted with bilateral pneumonia and is already elevated CPKs continued to elevate. He has had no renal failure related to this. I suspect that this is secondary to sepsis. My impressions were. 1. Acute left upper lung and right lower lung pneumonia. This is almost certainly bacterial and the onset is strongly suggestive of pneumococcal pneumonia. 2. Elevated CPKs present at admission and markedly worse since admission. 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 Will check for other causes. No associated renal failure 3. COPD with acute exacerbation including bronchospasm, retention of secretions and shortness of breath #4 tobacco abuse 5. History of gastroesophageal reflux disease 09/23/2016. The patient wheezing has significantly improved with IV Aminophyllin which will be converted to p.o. Aminophyllin and with Singulair. He still has some large airway and small airway wheezing but expiration is much more complete. He has coarse large airway congestion which is also better. He says he feels better. His CPK continues to elevate at 86,610. Electrolytes are normal and creatinine is 0.7. Continue present treatment and will get a follow-up chest x-ray. No cultures have been reported and sputum has not been reported. Cold agglutinins are negative. Legionella titers pending. Physical exam. Vital signs. See below Face. Symmetrical. No edema of the lips and tongue. Neck symmetrical no meningismus Lymphatics. No submandibular cervical supraclavicular or epitrochlear adenopathy Chest. Large airway wheeze and high-pitched peripheral wheezes with associated coarse congestion markedly improved compared to findings on 09/22/2016 Heart no gallop Abdomen nondistended nontender positive bowel sounds Extremities no edema Psychiatric oriented 3 General no distress Neurologic. Cranial nerves are intact long track motor functions intact The remainder the exam is noncontributory Plan. 09/22/2016 1. Sputum for Gram stain culture and sensitivity 2. Cold agglutinin. 3. Legionella titer 4. Continue inhalation therapy. Add Pulmozyme twice a day 5. Mucinex 600 twice daily 6. IV Aminophyllin. #7 daily theophylline levels 8. Singulair 9. Follow-up x-ray 10. As per renal 11. Case has been discussed with Dr. Stewart and we have coordinated our care 12. Urine for Streptococcus antigen. 13. See orders 09/23/2016. 1. See my note above 2. Convert IV Aminophyllin to p.o. theophylline 3. Follow-up chest x-ray and lab 4. Check cultures Exam (Progress Note) - Constitutional Vitals: Period Temp Pulse Resp BP Sys/Mendoza Pulse Ox Last 24 Hr 96.6 F-98 F 69-130 18-24 106-184/70-94 93-100 Results - Labs CBC & BMP: 09/22/16 05:29 09/23/16 03:16
[2016-09-23] MEDS: THEOPHYLLINE ER (24 HR) 400 MG CAPSULE PO SCH (11:23)
[2016-09-23 13:38] LABS: Procalcitonin, S 0.21 ng/mL (<=0.15)
[2016-09-23] MEDS: AZITHROMYCIN INJ 500 MG in SODIUM CHLORIDE 0.9% 250 ML IV SCH (15:11)
[2016-09-23] MEDS: cefTRIAXone 1,000 MG in SODIUM CHLORIDE 0.9% 100 ML IV SCH (16:23)
[2016-09-23] MEDS: AMINOPHYLLINE 500 MG in SODIUM CHLORIDE 0.9% 480 ML IV SCH (17:36)
--- NOTE | 2016-09-23 22:07 | Nephrology Progress Note ---
Nephrology - PN: Subj Interval history: No new symptoms today. He denies shortness of breath. No increase in muscle soreness Exam (PN)-Nephrology - Vital Signs Vital signs: Period Temp Pulse Resp BP Sys/Mendoza Pulse Ox Last 24 Hr 96.6 F-98.5 F 69-96 18-22 117-184/71-94 92-100 Exam: ENT: Normal Cardiovascular: Regular rate and rhythm. No murmur rub or gallop Lungs: Clear Extremities: No edema - Lab 09/22/16 05:29 09/23/16 03:16 Most recent lab results Calcium 8.2 MG/DL (8.5-10.1) L 09/23/16 03:16 Phosphorus 2.4 MG/DL (2.5-4.9) L 09/22/16 05:29 Magnesium 2.7 MG/DL (1.8-2.4) H 09/23/16 03:16 Assessment and Plan (1) Elevated CPK Status: Acute Assessment and plan: 65-year-old man with: * Pneumonia. This is clinically improved with empiric antibiotics. Blood cultures negative * Rhabdomyolysis. Creatinine remains normal. Bicarbonate added to IV fluid. Urine output adequate. CPK remains high * Atrial fibrillation/flutter. Resolved Current Visit: Yes (2) Community acquired pneumonia Status: Acute Current Visit: Yes (3) New onset a-fib Status: Acute Current Visit: Yes
[2016-09-24] MEDS: SODIUM CHLORIDE 23.4% CONC INJ 38.5 MEQ, SODIUM BICARB INJ 100 MEQ in STERILE WATER INJ... IV SCH ×2 (03:23→13:59)
[2016-09-24] MEDS: ALBUTEROL/IPRATROPIUM 3 ML NEB RESP TX SCH ×6 (03:45→23:38)
[2016-09-24 05:23] LABS: Basophils % 0.2 % (0.0-0.8); Eosinophils # 0.1 10*3/uL (0.0-0.87); Eosinophils % 0.3 % (0.00-10.9); Hematocrit 32.9 VOL% (42.0-52.0); Hemoglobin 11.3 GM/DL (14.0-18.0); Immature Granulocytes Absolute 0.96 #; Lymphocytes # 3.5 10*3/uL (1.4-4.0); Lymphocytes % 18.2 % (21.2-54.2); Mean Corpuscular HGB Conc 34.3 GM/DL (32-36); Mean Corpuscular Hemoglobin 33 PG (27-34); Mean Corpuscular Volume 95.1 FL (87-102); Mean Platelet Volume 10.9 FL (9.6-12.0); Monocytes % 5.1 % (1.7-12.7); NRBC # 0.07 10*3/uL; Neutrophils # 13.7 10*3/uL (1.4-7.4); Neutrophils % 71.2 % (38.7-73.9); Platelet Count 356 T/CUMM (130-400); Red Blood Count 3.46 MC/CUMM (3.8-5.5); Red Cell Distribution Width 12.1 % (9.3-17.3); White Blood Count 19.3 T/CUMM (4-12)
[2016-09-24 05:53] LABS: Lymphocytes 15 % (20-55); Platelet Estimate Normal; Segmented Neutrophils 77 % (50-85); Total Cells Counted 100
[2016-09-24 07:38] LABS: Calcium 8.9 MG/DL (8.5-10.1); Magnesium 2.5 MG/DL (1.8-2.4); Osmolality,Calculated 278.3 MOS/KG (273-304); Potassium 4.3 MMOL/L (3.5-5.1)
[2016-09-24] MEDS: DORNASE ALFA 2.5 MG/2.5 ML VIAL RESP TX SCH ×2 (08:17→19:55)
--- NOTE | 2016-09-24 08:21 | Pulmonology Progress Note ---
Pulmonary - PN: Subj Interval history: 65-year-old man came in with a left upper lobe pneumonia. He has rhabdomyolysis with markedly elevated CPK but his renal function has been intact. Getting a good bit of IV fluid. His weight is up 4 kg and his chest x- ray 2 days ago looked a little wet. We will recheck the x-ray tomorrow. I will check a BNP. Defer to nephrology on stopping or decreasing IV fluids were diuresing him. He does still have a cough and wheezing. He is a long-term smoker. Does have COPD. Exam (Progress Note) - Constitutional Vitals: Period Temp Pulse Resp BP Sys/Mendoza Pulse Ox Last 24 Hr 97.7 F-98.8 F 69-95 18-20 117-146/71-84 92-100 Exam: Patient is alert oriented. Vital signs normal. Pupils react to light. Throat is clear. Neck supple no bruits. Chest reveals some bilateral expiratory wheezes and rhonchi. Heart normal rate and rhythm no murmurs. Abdomen soft nontender no masses. Extremities no clubbing cyanosis or edema. Calves nontender. Results - Labs CBC & BMP: 09/24/16 04:57 09/24/16 04:57 Lab Results: I have reviewed the past 24 hour labs Assessment and Plan (1) Tobacco abuse Status: Acute Assessment and plan: Discussed with the patient the need to stay off cigarettes. He has not smoked since he came to the hospital he says. Current Visit: Yes (2) COPD (chronic obstructive pulmonary disease) Status: Acute Assessment and plan: Suspect he has underlying COPD. Continuing bronchodilators. Current Visit: Yes (3) Community acquired pneumonia Status: Acute Assessment and plan: Continuing empiric antibiotics for left upper lobe pneumonia. Current Visit: Yes (4) Elevated CPK Status: Acute Assessment and plan: Followed by nephrology. No signs of kidney injury at this point. Patient getting a lot of hydration. May be getting wet. Current Visit: Yes
[2016-09-24] MEDS: GABAPENTIN 300 MG CAPSULE PO SCH (08:59)
[2016-09-24] MEDS: METOPROLOL TARTRATE 50 MG TABLET PO SCH ×2 (08:59→21:21)
[2016-09-24] MEDS: predniSONE 20 MG TABLET PO SCH (08:59)
[2016-09-24] MEDS: FOLIC ACID 0.4 MG TABLET PO SCH (08:59)
[2016-09-24] MEDS: THIAMINE 100 MG TABLET PO SCH (08:59)
[2016-09-24] MEDS: PANTOPRAZOLE 40 MG TABLET PO SCH (09:00)
[2016-09-24] MEDS: ASPIRIN EC 81 MG TABLET PO SCH (09:00)
[2016-09-24] MEDS: APIXABAN 5 MG TABLET PO SCH ×2 (09:00→21:21)
[2016-09-24] MEDS: THEOPHYLLINE ER (24 HR) 400 MG CAPSULE PO SCH (09:00)
[2016-09-24] MEDS: DILTIAZEM CD 180 MG CAPSULE PO SCH (09:00)
[2016-09-24] MEDS: MONTELUKAST 10 MG TABLET PO SCH (09:00)
--- NOTE | 2016-09-24 09:31 | Hospitalist Progress Note ---
Assessment and Plan - Time spent with patient Time spent with patient: Less than 30 minutes (1) Community acquired pneumonia Status: Acute Assessment and plan: Patient was admitted with community acquired pneumonia and is receiving IV and buttocks. He also has a component of COPD and is followed by pulmonary. He is receiving O2, nebulizer therapy, corticosteroids and IV antibiotics and theophylline. Current Visit: Yes (2) New onset a-fib Status: Acute Assessment and plan: Patient had new onset atrial fibrillation on admission and is now in a sinus rhythm. He is currently controlled and is on anticoagulant therapy. Current Visit: Yes (3) Elevated CPK Status: Acute Assessment and plan: Continues to have elevated CPK with no significant change in his renal function. He has been followed by nephrology and is receiving bicarb infusion. TSH is within normal limits. Sputum and blood cultures negative. Strep and Legionella antigens negative. Continuing to follow. Current Visit: Yes Hospitalist: Subjective Interval history: Chart reviewed and patient has been examined. He denies any shortness of breath or chest pain at this time. He denies any myalgias or arthralgias. He denies any nausea, vomiting, diarrhea, constipation. He is tolerating his diet well. Exam - Constitutional Vitals: Period Temp Pulse Resp BP Sys/Mendoza Pulse Ox Last 24 Hr 97.7 F-98.8 F 69-95 18-20 117-146/71-84 92-100 General appearance: no acute distress - Head Head exam: Present: normocephalic, atraumatic - Eye Eye exam: Present: EOMI Pupils: Present: ALTHEA - ENT ENT exam: Present: normal exam - Neck Neck exam: Present: normal inspection - Respiratory Respiratory exam: Present: rhonchi - Cardiovascular Cardiovascular exam: Present: regular rate and rhythm. Absent: tachycardia - GI/Abdominal GI/Abdominal exam: Present: normal bowel sounds, soft. Absent: mass, tenderness , rebound - Extremities Exam Extremities exam: Absent: calf tenderness, edema - Back Exam Back exam: Present: normal inspection - Neurological Exam Neurological exam: Present: alert, oriented X3, CN II-XII intact. Absent: motor sensory deficit - Psychiatric Psychiatric exam: Present: normal affect, normal mood. Absent: agitated, anxious - Skin Skin exam: Present: warm, dry. Absent: erythema, rash Results - Labs CBC & BMP: 09/24/16 04:57 09/24/16 04:57 Lab Results: I have reviewed the past 24 hour labs Labs: CPK continues to rise and is now 91,320 - EKG EKG shows: sinus rhythm
[2016-09-24] MEDS: AZITHROMYCIN INJ 500 MG in SODIUM CHLORIDE 0.9% 250 ML IV SCH (13:59)
--- NOTE | 2016-09-24 15:15 | Nephrology Progress Note ---
Nephrology - PN: Subj Interval history: Patient is resting comfortably. Serum creatinine stable at 0.8. CPK is noted to be elevated. At this time, holding protonix and neurontin. Exam (PN)-Nephrology - Vital Signs Vital signs: Period Temp Pulse Resp BP Sys/Mendoza Pulse Ox Last 24 Hr 97.7 F-98.9 F 65-86 17-20 117-146/71-84 92-99 - General Appearance General appearance: well-developed, well-nourished EENT: ATNC Neck: supple Respiratory: clear Cardiology: no edema, regular rate, regular rhythm Gastrointestinal: normoactive bowel sounds, no tenderness Integumentary: no rash Neurologic: alert and oriented x3 - Lab 09/24/16 04:57 09/24/16 04:57 Most recent lab results Calcium 8.9 MG/DL (8.5-10.1) 09/24/16 04:57 Phosphorus 2.4 MG/DL (2.5-4.9) L 09/22/16 05:29 Magnesium 2.5 MG/DL (1.8-2.4) H 09/24/16 04:57 Assessment and Plan (1) Elevated CPK Status: Acute Assessment and plan: Continue with IV fluids. Discontinue protonix Discontinue neurontin Repeat CPK in AM Current Visit: Yes (2) COPD (chronic obstructive pulmonary disease) Status: Chronic Current Visit: Yes
[2016-09-24] MEDS: cefTRIAXone 1,000 MG in SODIUM CHLORIDE 0.9% 100 ML IV SCH (16:20)
[2016-09-24] MEDS: FAMOTIDINE 20 MG TABLET PO SCH (21:21)
[2016-09-25] MEDS: SODIUM CHLORIDE 23.4% CONC INJ 38.5 MEQ, SODIUM BICARB INJ 100 MEQ in STERILE WATER INJ... IV SCH ×2 (02:39→13:51)
[2016-09-25] MEDS: ALBUTEROL/IPRATROPIUM 3 ML NEB RESP TX SCH ×6 (03:55→23:33)
[2016-09-25 06:18] LABS: Calcium 8.6 MG/DL (8.5-10.1); Magnesium 2.4 MG/DL (1.8-2.4); Osmolality,Calculated 278.4 MOS/KG (273-304); Potassium 4.4 MMOL/L (3.5-5.1)
[2016-09-25] MEDS: DORNASE ALFA 2.5 MG/2.5 ML VIAL RESP TX SCH ×2 (08:07→19:30)
--- NOTE | 2016-09-25 08:14 | Hospitalist Progress Note ---
Assessment and Plan - Time spent with patient Time spent with patient: Less than 30 minutes (1) Community acquired pneumonia Status: Acute Assessment and plan: Patient was admitted with community acquired pneumonia and is receiving IV antibiotic. He also has a component of COPD and is followed by pulmonary. He is receiving O2, nebulizer therapy, corticosteroids and IV antibiotics and theophylline. 09/25/16: Patient is followed by pulmonary. He continues to improve. Continue therapy as noted above. Current Visit: Yes (2) New onset a-fib Status: Acute Assessment and plan: Patient had new onset atrial fibrillation on admission and is now in a sinus rhythm. He is currently controlled and is on anticoagulant therapy. Current Visit: Yes (3) Elevated CPK Status: Acute Assessment and plan: Continues to have elevated CPK with no significant change in his renal function. He has been followed by nephrology and is receiving bicarb infusion. TSH is within normal limits. Sputum and blood cultures negative. Strep and Legionella antigens negative. Continuing to follow. 09/25/16: CPK significantly improved this morning. Creatinine remains stable. Nephrology is following. Continuing to follow CPK. Current Visit: Yes Hospitalist: Subjective Interval history: Patient is receiving a breathing treatment at this time. He has mild continued wheeze otherwise denies any further complaints. He is tolerating his diet well. Exam - Constitutional Vitals: Period Temp Pulse Resp BP Sys/Mendoza Pulse Ox Last 24 Hr 97.0 F-98.9 F 65-79 16-20 112-158/71-89 92-99 General appearance: no acute distress - Head Head exam: Present: normocephalic, atraumatic - Eye Eye exam: Present: EOMI Pupils: Present: ALTHEA - ENT ENT exam: Present: normal exam - Neck Neck exam: Present: normal inspection - Respiratory Respiratory exam: Present: wheezes (Scattered wheezes) - Cardiovascular Cardiovascular exam: Present: regular rate and rhythm. Absent: tachycardia - GI/Abdominal GI/Abdominal exam: Present: normal bowel sounds, soft. Absent: mass, tenderness , rebound - Extremities Exam Extremities exam: Absent: calf tenderness, edema - Neurological Exam Neurological exam: Present: alert, oriented X3, CN II-XII intact. Absent: motor sensory deficit - Psychiatric Psychiatric exam: Present: normal affect, normal mood. Absent: agitated, anxious - Skin Skin exam: Present: warm, dry. Absent: rash Results - Labs CBC & BMP: 09/24/16 04:57 09/25/16 04:26 Lab Results: I have reviewed the past 24 hour labs Labs: CPK has improved approximately 53,000
--- NOTE | 2016-09-25 08:31 | Pulmonology Progress Note ---
Pulmonary - PN: Subj Interval history: 65-year-old man came in with a left upper lobe pneumonia. He has rhabdomyolysis with markedly elevated CPK but his renal function has been intact. Getting a good bit of IV fluid. His weight is up 4 kg and his chest x- ray 2 days ago looked a little wet. We will recheck the x-ray tomorrow. I will check a BNP. Defer to nephrology on stopping or decreasing IV fluids were diuresing him. He does still have a cough and wheezing. He is a long-term smoker. Does have COPD. 09/25/2016 chest sounds a little better. Continuing antibiotics and bronchodilators for COPD exacerbation and left upper lobe bronchopneumonia. Exam (Progress Note) - Constitutional Vitals: Period Temp Pulse Resp BP Sys/Mendoza Pulse Ox Last 24 Hr 97.0 F-98.9 F 65-77 16-20 112-158/71-89 92-99 Exam: Patient is alert oriented. Vital signs normal. Pupils react to light. Throat is clear. Neck supple no bruits. Chest reveals some bilateral expiratory wheezes and rhonchi. Heart normal rate and rhythm no murmurs. Abdomen soft nontender no masses. Extremities no clubbing cyanosis or edema. Calves nontender. Little change from yesterday. Results - Labs CBC & BMP: 09/24/16 04:57 09/25/16 04:26 Lab Results: I have reviewed the past 24 hour labs Assessment and Plan (1) Tobacco abuse Status: Acute Assessment and plan: Discussed with the patient the need to stay off cigarettes. He has not smoked since he came to the hospital he says. 09/25/2016 reiterated need for smoking cessation. Current Visit: Yes (2) COPD (chronic obstructive pulmonary disease) Status: Chronic Assessment and plan: Suspect he has underlying COPD. Continuing bronchodilators. 09/25/2016 continuing bronchodilators and antibiotics. Current Visit: Yes (3) Community acquired pneumonia Status: Acute Assessment and plan: Continuing empiric antibiotics for left upper lobe pneumonia. 09/25/2016 no fever. Current Visit: Yes (4) Elevated CPK Status: Acute Assessment and plan: Followed by nephrology. No signs of kidney injury at this point. Patient getting a lot of hydration. May be getting wet. Current Visit: Yes
[2016-09-25] MEDS: DILTIAZEM CD 180 MG CAPSULE PO SCH (09:09)
[2016-09-25] MEDS: THEOPHYLLINE ER (24 HR) 400 MG CAPSULE PO SCH (09:09)
[2016-09-25] MEDS: THIAMINE 100 MG TABLET PO SCH (09:09)
[2016-09-25] MEDS: FOLIC ACID 0.4 MG TABLET PO SCH (09:09)
[2016-09-25] MEDS: predniSONE 20 MG TABLET PO SCH (09:09)
[2016-09-25] MEDS: FAMOTIDINE 20 MG TABLET PO SCH ×2 (09:10→21:24)
[2016-09-25] MEDS: APIXABAN 5 MG TABLET PO SCH ×2 (09:10→21:24)
[2016-09-25] MEDS: ASPIRIN EC 81 MG TABLET PO SCH (09:10)
[2016-09-25] MEDS: METOPROLOL TARTRATE 50 MG TABLET PO SCH ×2 (09:10→21:24)
[2016-09-25] MEDS: MONTELUKAST 10 MG TABLET PO SCH (09:10)
[2016-09-25] MEDS: AZITHROMYCIN INJ 500 MG in SODIUM CHLORIDE 0.9% 250 ML IV SCH (14:10)
--- NOTE | 2016-09-25 15:39 | Nephrology Progress Note ---
Nephrology - PN: Subj Interval history: Patient is resting comfortably. Serum creatinine stable at 0.8. CPK is noted to be elevated. At this time, holding protonix and neurontin. 09/25/2016. The patient is resting comfortably. CPK is significantly decreased. No other acute changes. Continue to follow CPK levels. Exam (PN)-Nephrology - Vital Signs Vital signs: Period Temp Pulse Resp BP Sys/Mendoza Pulse Ox Last 24 Hr 97.0 F-97.7 F 63-78 16-20 112-158/71-89 93-100 - General Appearance General appearance: well-developed, well-nourished EENT: ATNC Neck: supple Respiratory: clear Cardiology: no edema, regular rate, regular rhythm Gastrointestinal: normoactive bowel sounds, no tenderness Neurologic: alert and oriented x3 Musculoskeletal: no clubbing Psychiatric: mood/affect appropriate - Lab 09/24/16 04:57 09/25/16 04:26 Most recent lab results Calcium 8.6 MG/DL (8.5-10.1) 09/25/16 04:26 Phosphorus 2.4 MG/DL (2.5-4.9) L 09/22/16 05:29 Magnesium 2.4 MG/DL (1.8-2.4) 09/25/16 04:26 Assessment and Plan (1) Elevated CPK Status: Acute Assessment and plan: Continue with IV fluids. CPK level is trending down at this time. Continue to monitor. Have discontinued protonix Have discontinued neurontin Repeat CPK in AM Current Visit: Yes (2) COPD (chronic obstructive pulmonary disease) Status: Chronic Current Visit: Yes
[2016-09-25] MEDS: cefTRIAXone 1,000 MG in SODIUM CHLORIDE 0.9% 100 ML IV SCH (16:55)
[2016-09-26] MEDS: SODIUM CHLORIDE 23.4% CONC INJ 38.5 MEQ, SODIUM BICARB INJ 100 MEQ in STERILE WATER INJ... IV SCH ×5 (00:32→13:09)
[2016-09-26] MEDS: ALBUTEROL/IPRATROPIUM 3 ML NEB RESP TX SCH ×6 (02:32→22:30)
[2016-09-26 06:06] LABS: Calcium 9.1 MG/DL (8.5-10.1); Magnesium 2.5 MG/DL (1.8-2.4); Osmolality,Calculated 280.4 MOS/KG (273-304); Potassium 4.7 MMOL/L (3.5-5.1)
--- NOTE | 2016-09-26 07:25 | XRay Report ---
XR chest 2V Indication: Pneumonia. Chest 2 views: Comparison 09/22/2016. Overall, lungs are much better aerated than previous with almost total resolution of multilobar infiltrates. There are couple of calcified granulomata now apparent, as well as increased definition of the left fissure on the lateral view. Heart size and mediastinal contour normal. Impression: When compared to 4 days ago, significantly improved aeration of the lungs with almost total resolution of multifocal pneumonia or edema. Definition of the left fissure noted. Consider follow-up PA and lateral chest x-ray. PROCEDURE INTERPRETED AT [facility] DEPARTMENT OF RADIOLOGY Final Report Signed by: Joshua Alanis M.D.
[2016-09-26] MEDS: DORNASE ALFA 2.5 MG/2.5 ML VIAL RESP TX SCH ×2 (07:51→18:58)
[2016-09-26] MEDS: THEOPHYLLINE ER (24 HR) 400 MG CAPSULE PO SCH (08:31)
[2016-09-26] MEDS: METOPROLOL TARTRATE 50 MG TABLET PO SCH ×2 (08:31→21:32)
[2016-09-26] MEDS: ASPIRIN EC 81 MG TABLET PO SCH (08:31)
[2016-09-26] MEDS: APIXABAN 5 MG TABLET PO SCH ×2 (08:31→21:32)
[2016-09-26] MEDS: MONTELUKAST 10 MG TABLET PO SCH (08:31)
[2016-09-26] MEDS: FOLIC ACID 0.4 MG TABLET PO SCH (08:31)
[2016-09-26] MEDS: predniSONE 20 MG TABLET PO SCH (08:31)
[2016-09-26] MEDS: FAMOTIDINE 20 MG TABLET PO SCH ×2 (08:31→21:32)
[2016-09-26] MEDS: THIAMINE 100 MG TABLET PO SCH (08:31)
[2016-09-26] MEDS: DILTIAZEM CD 180 MG CAPSULE PO SCH (08:32)
--- NOTE | 2016-09-26 10:23 | Hospitalist Progress Note ---
Assessment and Plan - Time spent with patient Time spent with patient: Less than 30 minutes (1) Community acquired pneumonia Status: Acute Assessment and plan: Patient was admitted with community acquired pneumonia and is receiving IV antibiotic. He also has a component of COPD and is followed by pulmonary. He is receiving O2, nebulizer therapy, corticosteroids and IV antibiotics and theophylline. 09/25/16: Patient is followed by pulmonary. He continues to improve. Continue therapy as noted above. 09/26/16: Patient's continue to be followed by pulmonary and is improving. Continuing current care and hopefully can plan discharge within the next 24-48 hours. Current Visit: Yes (2) New onset a-fib Status: Acute Assessment and plan: Patient had new onset atrial fibrillation on admission and is now in a sinus rhythm. He is currently controlled and is on anticoagulant therapy. Current Visit: Yes (3) Elevated CPK Status: Acute Assessment and plan: Continues to have elevated CPK with no significant change in his renal function. He has been followed by nephrology and is receiving bicarb infusion. TSH is within normal limits. Sputum and blood cultures negative. Strep and Legionella antigens negative. Continuing to follow. 09/25/16: CPK significantly improved this morning. Creatinine remains stable. Nephrology is following. Continuing to follow CPK. 09/26/16: CPK continues to improve and is now down to 36,690. Creatinine remained stable. Nephrology is following. Hopefully can plan discharge within the next 24-48 hours. Current Visit: Yes Hospitalist: Subjective Interval history: Mr. Story denies any chest pain or shortness of breath at this time. He is tolerating his diet. Labs have been reviewed with him. Exam - Constitutional Vitals: Period Temp Pulse Resp BP Sys/Mendoza Pulse Ox Last 24 Hr 97.2 F-97.8 F 59-83 18-20 127-154/70-86 93-100 General appearance: no acute distress - Head Head exam: Present: normocephalic, atraumatic - Eye Eye exam: Present: EOMI Pupils: Present: ALTHEA - ENT ENT exam: Present: normal exam - Neck Neck exam: Present: normal inspection - Respiratory Respiratory exam: Present: clear to auscultation bilaterally - Cardiovascular Cardiovascular exam: Present: regular rate and rhythm. Absent: tachycardia - GI/Abdominal GI/Abdominal exam: Present: normal bowel sounds, soft. Absent: mass, tenderness , rebound - Extremities Exam Extremities exam: Absent: calf tenderness, edema - Neurological Exam Neurological exam: Present: alert, oriented X3, CN II-XII intact. Absent: motor sensory deficit - Psychiatric Psychiatric exam: Present: normal affect, normal mood. Absent: agitated, anxious - Skin Skin exam: Present: warm, dry. Absent: erythema, rash Results - Labs CBC & BMP: 09/24/16 04:57 09/26/16 03:46 Lab Results: I have reviewed the past 24 hour labs Labs: CPK 36,609
--- NOTE | 2016-09-26 10:34 | Pulmonology Progress Note ---
Pulmonary - PN: Subj Interval history: Dl Ventura, [facility]-, acting as scribe for Dr. Davie Samson This is a 65-year-old black male who we saw in pulmonary consultation on 2016. He had been admitted with bilateral pneumonia and his already elevated CPKs continued to elevate. He had had no renal failure related to this. We suspect that this was secondary to sepsis. At the time of our initial consult, our impressions were: 1. Acute left upper lung and right lower lung pneumonia. This is almost certainly bacterial and the onset is strongly suggestive of pneumococcal pneumonia. 2. Elevated CPKs present at admission and markedly worse since admission. Suspect a skeletal muscle injury and most likely this is going to glove turner to be secondary to bacterial sepsis. Will check for other causes. No associated renal failure. 3. COPD with acute exacerbation including bronchospasm, retention of secretions and shortness of breath 4. Tobacco abuse 5. History of gastroesophageal reflux disease 09/23/2016. The patient wheezing has significantly improved with IV Aminophyllin which will be converted to p.o. Aminophyllin and with Singulair. He still has some large airway and small airway wheezing but expiration is much more complete. He has coarse large airway congestion which is also better. He says he feels better. His CPK continues to elevate at 86,610. Electrolytes are normal and creatinine is 0.7. Continue present treatment and will get a follow-up chest x-ray. No cultures have been reported and sputum has not been reported. Cold agglutinins are negative. Legionella titers pending. 09/26/2016. The patient's sputum Gram stain showed few gram-positive cocci in pairs, chains and clusters and few gram-negative rods. Sputum culture ultimately grew Proteus mirabilis. Therefore, his infiltrates were secondary to Proteus mirabilis. With this information, we have changed his antibiotics to Levaquin. We stopped the Rocephin and azithromycin. His rhabdomyolysis is improving. His CPK has dramatically fallen. His creatinine has remained stable at 1.00. Overall, the patient is doing remarkably well. Pro-calcitonin is elevated at 0.21. Urine strep pneumonia was negative. Urine Legionella was negative. Cold agglutinins were negative. Chest x-ray today is markedly improved. Previously noted infiltrates are nearly completely resolved. Note, the patient was started on oral theophylline last week when converted from IV Aminophyllin. Medications have been reviewed. Rocephin and azithromycin were discontinued and patient was started on oral Levaquin. Labs been reviewed. Creatinine 1.00, BUN 16, electrolytes are normal; CPK is fallen to 36,690; theophylline level 4.6 Exam (Progress Note) - Constitutional Vitals: Period Temp Pulse Resp BP Sys/Mendoza Pulse Ox Last 24 Hr 97.2 F-97.8 F 59-83 18-20 127-154/70-86 93-100 Exam: Chest is wheeze free Heart no gallop Abdomen is nontender nondistended; bowel sounds are positive 4 Extremities with nothing to suggest acute deep venous thrombophlebitis Psychiatric oriented 3 Neurologic long-term motor function is intact Plan: Stop Rocephin and azithromycin. Start Levaquin 500 mg p.o. daily. See orders. Results - Labs CBC & BMP: 09/24/16 04:57 09/26/16 03:46
[2016-09-26] MEDS: LEVOFLOXACIN 500 MG TABLET PO SCH (10:37)
--- NOTE | 2016-09-26 12:31 | Nephrology Progress Note ---
Nephrology - PN: Subj Interval history: No shortness of breath. No muscle pain Exam (PN)-Nephrology - Vital Signs Vital signs: Period Temp Pulse Resp BP Sys/Mendoza Pulse Ox Last 24 Hr 97 F-97.8 F 58-83 18-20 118-154/70-86 95-100 Exam: ENT: Normal Cardiovascular: Regular rate and rhythm. No murmur rub or gallop Lungs: Clear Extremities: No edema - Lab 09/24/16 04:57 09/26/16 03:46 Most recent lab results Calcium 9.1 MG/DL (8.5-10.1) 09/26/16 03:46 Phosphorus 2.4 MG/DL (2.5-4.9) L 09/22/16 05:29 Magnesium 2.5 MG/DL (1.8-2.4) H 09/26/16 03:46 Assessment and Plan (1) Elevated CPK Status: Acute Assessment and plan: 65-year-old man with: * Pneumonia. This is clinically improved with empiric antibiotics. Blood cultures negative. Chest x-ray markedly improved * Rhabdomyolysis. Creatinine remains normal. CPK falling * Atrial fibrillation/flutter. Resolved Current Visit: Yes (2) Community acquired pneumonia Status: Acute Current Visit: Yes (3) New onset a-fib Status: Acute Current Visit: Yes
[2016-09-27] MEDS: ALBUTEROL/IPRATROPIUM 3 ML NEB RESP TX SCH ×3 (02:54→10:03)
[2016-09-27 05:15] LABS: Basophils % 0.1 % (0.0-0.8); Eosinophils % 0.1 % (0.00-10.9); Hematocrit 36.3 VOL% (42.0-52.0); Hemoglobin 12.4 GM/DL (14.0-18.0); Immature Granulocytes % 5.2 %; Immature Granulocytes Absolute 1.13 #; Mean Corpuscular HGB Conc 34.2 GM/DL (32-36); Mean Corpuscular Hemoglobin 33 PG (27-34); Mean Corpuscular Volume 97.1 FL (87-102); Mean Platelet Volume 10.1 FL (9.6-12.0); Monocytes # 0.9 10*3/uL (0.11-0.8); Monocytes % 3.9 % (1.7-12.7); NRBC # 0.06 10*3/uL; Neutrophils # 16.5 10*3/uL (1.4-7.4); Neutrophils % 76.7 % (38.7-73.9); Platelet Count 412 T/CUMM (130-400); Red Blood Count 3.74 MC/CUMM (3.8-5.5); Red Cell Distribution Width 12.2 % (9.3-17.3); White Blood Count 21.6 T/CUMM (4-12)
[2016-09-27 05:49] LABS: Band Neutrophils 2 % (0-10); Eosinophils 1 % (0-10); Lymphocytes 14 % (20-55); Metamyelocytes 1 %; Segmented Neutrophils 77 % (50-85)
[2016-09-27 05:52] LABS: Giant Platelets Few; Platelet Estimate Increased; Total Cells Counted 100
[2016-09-27 05:53] LABS: Polychromasia Few
[2016-09-27] MEDS: SODIUM CHLORIDE 23.4% CONC INJ 38.5 MEQ, SODIUM BICARB INJ 100 MEQ in STERILE WATER INJ... IV SCH ×2 (06:22→08:47)
[2016-09-27 06:29] LABS: Calcium 9.2 MG/DL (8.5-10.1); Osmolality,Calculated 278.5 MOS/KG (273-304); Potassium 4.5 MMOL/L (3.5-5.1)
[2016-09-27] MEDS: DORNASE ALFA 2.5 MG/2.5 ML VIAL RESP TX SCH (07:23)
[2016-09-27] MEDS: FOLIC ACID 0.4 MG TABLET PO SCH (08:45)
[2016-09-27] MEDS: THEOPHYLLINE ER (24 HR) 400 MG CAPSULE PO SCH (08:45)
[2016-09-27] MEDS: THIAMINE 100 MG TABLET PO SCH (08:46)
[2016-09-27] MEDS: predniSONE 20 MG TABLET PO SCH (08:46)
[2016-09-27] MEDS: MONTELUKAST 10 MG TABLET PO SCH (08:46)
[2016-09-27] MEDS: METOPROLOL TARTRATE 50 MG TABLET PO SCH (08:46)
[2016-09-27] MEDS: FAMOTIDINE 20 MG TABLET PO SCH (08:46)
[2016-09-27] MEDS: APIXABAN 5 MG TABLET PO SCH (08:46)
[2016-09-27] MEDS: DILTIAZEM CD 180 MG CAPSULE PO SCH (08:46)
[2016-09-27] MEDS: ASPIRIN EC 81 MG TABLET PO SCH (08:47)
[2016-09-27] MEDS: LEVOFLOXACIN 500 MG TABLET PO SCH ×2 (08:47→09:42)
--- NOTE | 2016-09-27 11:16 | Discharge Summary ---
Hospital Course - Hospital Course Hospital Course: 65-year-old male admitted to the hospital with bilateral lower lobe pneumonia and elevated CPK with evidence of rhabdomyolysis. The patient was treated for community-acquired pneumonia with Rocephin and Zithromax. His cultures were positive for Proteus. He was switched over to Levaquin. He also had atrial fibrillation with rapid ventricular response which has now converted to sinus rhythm. The patient was seen by cardiology and he was seen in consultation by nephrology and pulmonary Dr. Samson. He will continue to do well during the course of hospitalization. He received a bicarbonate drip. He never had renal failure. CPKs of come down as expected. He is being discharged home with prescription for Levaquin once daily as well as multiple other medications for atrial fibrillation which has resolved. The patient is now in sinus rhythm and has been started on calcium channel blockers and beta blockers as well as anticoagulation with Eliquis. New medications include Cardizem, metoprolol, Levaquin, prednisone taper, Eliquis His other home medications were reviewed and reconciled. Patient has reached maximal benefit from this inpatient hospitalization. He is being discharged home to follow-up with his primary care physicians and the [place] [facility]. He is to remain out of work until September the . - Time spent with patient Time with patient DS: Greater than 30 minutes (Total discharge time for this patient, including [id number] time, clinical documentation, medication reconciliation, and discharge planning was 42 minutes.) Diagnosis - Discharge Diagnosis (1) Rhabdomyolysis Status: Resolved (2) Community acquired pneumonia Status: Acute (3) Dehydration Status: Resolved (4) New onset a-fib Status: Resolved (5) Tobacco abuse Status: Chronic (6) COPD (chronic obstructive pulmonary disease) Status: Chronic Discharge Plan - Discharge Data Disposition: Disch To Home/Self Care Condition at Discharge: Stable Discharge Diet: advance to your usual diet Activity: resume usual activities as tolerated Hygiene: no restrictions Weight Bearing at Discharge: full weight bearing Driving: no restrictions Contact your physician if you experience:: fever over 101, Shortness of breath - Discharge Medications New Apixaban [Eliquis] 5 mg PO BID #60 tablet Dornase Papo [Pulmozyme] 2.5 mg RESP TX RT Q12H #1 vial Famotidine Tab [Pepcid Tab] 20 mg PO BID #60 tablet guaiFENesin ER TAB [Mucinex] 600 mg PO BID tablet Levofloxacin Tab [Levaquin Tab] 500 mg PO Q24H #10 tablet Montelukast Tab [Singulair Tab] 10 mg PO DAILY #30 tablet predniSONE TAB [PredniSONE] 10 mg PO DAILY #56 tablet Diltiazem Cd Cap [Cardizem CD] 360 mg PO DAILY #120 capsule Metoprolol Tartrate Tab [Lopressor Tab] 50 mg PO BID #60 tablet Theophylline ER Cap (24 Hr) [Suresh-24] 400 mg PO DAILY #30 capsule Continue Aspirin EC Tab 81 mg PO DAILY Gabapentin 300 mg PO DAILY - Follow Up or Referral Follow Up: [facility] (Patel[facility] [Outside] - Forms/Instructions Additional Discharge Instructions: May return to work on October 03 Exam - Constitutional Vitals: Period Temp Pulse Resp BP Sys/Mendoza Pulse Ox Last 24 Hr 97 F-97.7 F 58-68 16-64 118-139/68-79 94-98 Discharge Results Labs on day of discharge: Labs from last 24 hours 09/27/16 09/27/16 04:58 04:58 WBC 21.6 H RBC 3.74 L Hgb 12.4 L Hct 36.3 L MCV 97.1 MCH 33 MCHC 34.2 RDW 12.2 Plt Count 412 H MPV 10.1 Neut % (Auto) 76.7 H Lymph % (Auto) 14.0 L [place] % (Auto) 3.9 Eos % (Auto) 0.1 Baso % (Auto) 0.1 Neut # (Auto) 16.5 H Lymph # (Auto) 3.0 [place] # (Auto) 0.9 H Eos # (Auto) 0.0 Baso # (Auto) 0.0 Total Counted 100 Immature Gran % 5.2 Nucleated RBC % 0.3 Immature Gran # 1.13 Segmented Neutrophils 77 Band Neutrophils 2 Lymphocytes 14 L Monocytes 5 Eosinophils 1 Metamyelocytes 1 Nucleated RBCs # 0.06 Platelet Estimate Increased Giant Platelets Few Immature Plt Fraction 0.0 Polychromasia Few Sodium 139 Potassium 4.5 Chloride 101 Carbon Dioxide 30 Anion Gap 12.5 BUN 17 Creatinine 0.90 GFR Calculation 130 BUN/Creatinine Ratio 18.00 Glucose 103 Calculated Osmolality 278.5 Calcium 9.2 Total Creatine Kinase 34440 H D DS: Provider Date of admission: 09/18/16 15:56 Primary care physician: . No PCP Attending physician on admission: Meagan Najera MD Consults: 09/21/16 13:50 Consult to Physician [CONS] Routine Comment: RHABDO Consulting Provider: Alfie Smith When should Consulting Provider be notified: Now Person Notified: DRAKE Date Notified: 09/21/16 Time Notified: 14:00 Consult Notification Comment: NOTIFIED PER KELSEY GARCÍA. 09/22/16 08:13 Consult to Physician [CONS] Routine Comment: pneumonia with rhabdo Consulting Provider: Davie Samson Consult to Specialist Group: Pulmonology Person Notified: Lis Date Notified: 09/22/16 Time Notified: 08:30 Discharging clinician: Olya Johnston MD Expected date of discharge: 09/27/16
--- NOTE | 2016-09-27 11:33 | Pulmonology Progress Note ---
Pulmonary - PN: Subj Interval history: This is a 65-year-old black male whom I saw in pulmonary consultation on 2016. He had been admitted with bilateral pneumonia and is already elevated CPKs continued to elevate. He has had no renal failure related to this. I suspect that this is secondary to sepsis. My impressions were. 1. Acute left upper lung and right lower lung pneumonia. This is almost certainly bacterial and the onset is strongly suggestive of pneumococcal pneumonia. 2. Elevated CPKs present at admission and markedly worse since admission. Suspect a skeletal muscle injury and most likely this is going to roller turner to be secondary to bacterial sepsis. Will check for other causes. No associated renal failure 3. COPD with acute exacerbation including bronchospasm, retention of secretions and shortness of breath #4 tobacco abuse 5. History of gastroesophageal reflux disease 09/23/2016. The patient wheezing has significantly improved with IV Aminophyllin which will be converted to p.o. Aminophyllin and with Singulair. He still has some large airway and small airway wheezing but expiration is much more complete. He has coarse large airway congestion which is also better. He says he feels better. His CPK continues to elevate at 86,610. Electrolytes are normal and creatinine is 0.7. Continue present treatment and will get a follow-up chest x-ray. No cultures have been reported and sputum has not been reported. Cold agglutinins are negative. Legionella titers pending. 09/27/2016. Patient is 100% wheeze free. Electrolytes are normal. CPK has dropped to 15,970. Creatinine is 0.90 with a BUN of 17. White count is 21,200 which I think his leukocytosis secondary to steroids. H&H is 12.2/36.3. Platelets of 412,000. Sputum cultures grew Proteus mirabilis peer. I agree with plans to discharge the patient. I have reviewed and discuss plans and coordinating my care with his doctor. Suggested we keep him on Levaquin at least another 7 days. Suggest prednisone 20 daily for 7 days followed by 10 daily for 7 days and then 10 every other day for 7 doses. Continue Singulair 10 mg daily and theophylline 24, 400 mg once per day. Also consists continue Mucinex 600 twice daily. Patient has been told that restarting smoking could be detrimental to his health. This patient's followed by the [place] and does not need a follow-up appointment to see me. I will sign off. Reconsult whenever needed Physical exam. Vital signs. See below Face. Symmetrical. No edema of the lips and tongue. Neck symmetrical no meningismus Lymphatics. No submandibular cervical supraclavicular or epitrochlear adenopathy Chest. 100% wheeze for Heart no gallop Abdomen nondistended nontender positive bowel sounds Extremities no edema Psychiatric oriented 3 General no distress Neurologic. Cranial nerves are intact long track motor functions intact The remainder the exam is noncontributory Plan. 09/22/2016 1. Sputum for Gram stain culture and sensitivity 2. Cold agglutinin. 3. Legionella titer 4. Continue inhalation therapy. Add Pulmozyme twice a day 5. Mucinex 600 twice daily 6. IV Aminophyllin. #7 daily theophylline levels 8. Singulair 9. Follow-up x-ray 10. As per renal 11. Case has been discussed with Dr. Stewart and we have coordinated our care 12. Urine for Streptococcus antigen. 13. See orders 09/23/2016. 1. See my note above 2. Convert IV Aminophyllin to p.o. theophylline 3. Follow-up chest x-ray and lab 4. Check cultures 09/27/2016. 1. See my note above. This includes suggested medicines. 2. [facility] He does not need an appointment to see me. 3. We will sign off. Reconsult whenever needed. Exam (Progress Note) - Constitutional Vitals: Period Temp Pulse Resp BP Sys/Mendoza Pulse Ox Last 24 Hr 97 F-97.7 F 58-68 16-64 118-139/68-79 94-98 Results - Labs CBC & BMP: 09/27/16 04:58 09/27/16 04:58 Specialty Discharge - Follow Up or Referrals Follow up with: R[facility]NE Lopez) [facility] [Outside]
[2016-09-27 12:00] VITALS: BP 136/81
--- NOTE | 2016-09-27 18:28 | Nephrology Progress Note ---
Nephrology - PN: Subj Interval history: He is asymptomatic today. No shortness of breath Exam (PN)-Nephrology - Vital Signs Vital signs: Period Temp Pulse Resp BP Sys/Mendoza Pulse Ox Last 24 Hr 97 F-97.7 F 58-73 16-64 120-139/68-81 94-98 Exam: ENT: Normal Cardiovascular: Regular rate and rhythm. No murmur rub or gallop Lungs: Clear Extremities: No edema - Lab 09/27/16 04:58 09/27/16 04:58 Most recent lab results Calcium 9.2 MG/DL (8.5-10.1) 09/27/16 04:58 Phosphorus 2.4 MG/DL (2.5-4.9) L 09/22/16 05:29 Magnesium 2.5 MG/DL (1.8-2.4) H 09/26/16 03:46 Assessment and Plan (1) Elevated CPK Status: Acute Assessment and plan: 65-year-old man with: * Pneumonia. Much improved * Rhabdomyolysis. CPK has fallen to 15,000. This should continue to improve. Renal function remains normal * Atrial fibrillation/flutter. Resolved (2) Community acquired pneumonia Status: Acute (3) New onset a-fib Status: Resolved Specialty Discharge - Follow Up or Referrals Follow up with: MICHELE (Sonny) [facility] [Outside]
== END 2016-09-27 13:42 | disposition home or self-care (01) | DRG 871 ==
LOC: N.ED 12:49 → SUATTDRO 15:56 → N.EDINP 15:56 → N.TELEN 17:39
PROVIDERS: ADMIT Internal Medicine; ATTEND Family Medicine